=== PATIENT | male | born 1970 | race Two or more races ===

== ENCOUNTER → 2017-08-02 | Outpatient (CLI) | payer OTHER ==
[~2017-08-02] MED LIST: ANUSOL SUPP1 SUP PR; ATIVAN1 MG PO; BACTRIM DS 8001 TAB PO; CIPRO 500MG TA500 MG PO; ERYTHROMYC3.5 GM/TUB OP; LISINOPRIL 20MG20 MG PO; LORTAB 5/500 501 TAB PO; LOVASTATIN20 MG PO; NOMEDS *; NORVASC 5MG. TAB5 MG PO; PHENERGAN 25MG.25 M1 PO; PREDNISONE 10MG10 MG PO; ULTRACET 325 MG1 TAB PO
[2017-08-02 16:15] LABS: HEMOGLOBIN 16.5 g/dL (14.1-18.0); LYMPH # 1.3 K/mm3 (0.7-4.5); LYMPH % 24.3 % (10-50)
[2017-08-02 17:12] LABS: BUN 10 mg/dL (7-18)
[2017-08-02 17:18] LABS: GFR (ESTIMATED) 104 ML/MIN (>60)
== END ==
LOC: LAB 15:41
PROVIDERS: Nurse Practitioner Family
DX: I10 Essential (primary) hypertension (principal)